=== PATIENT | male | born 1975 | race Caucasian/White ===

== ENCOUNTER 2019-11-24 12:50 | Inpatient (IN) | payer OTHER, MEDICARE ==
[~2019-11-24] VITALS: Ht 162.6 cm; Wt 84.4 kg
[2019-11-24] MEDS ORDERED: LevETIRAcetam 1,000 MG in DEXTROSE 5%-WATER 100 ML IV ONE (13:00)
[2019-11-24 13:16] LABS: BASOPHILS % (AUTO) 0.9 % (0.0-2.0); EOSINOPHILS % (AUTO) 5.7 % (1.0-6.0); HEMATOCRIT 45.9 % (41-53); HEMOGLOBIN 15.5 g/dL (13.5-17.5); LYMPHOCYTES % (AUTO) 9.8 % (22.0-44.0); MEAN CORPUSCULAR HEMOGLOBIN 29.1 pg (26.0-34.0); MEAN CORPUSCULAR HGB CONC 33.7 G/dL (31.0-37.0); MEAN CORPUSCULAR VOLUME 86 fL (80-100); MONOCYTES # (AUTO) 1.3 K/uL (0.1-1.0); MONOCYTES % (AUTO) 12.4 % (2.0-9.0); NEUTROPHILS # (AUTO) 7.3 K/uL (1.8-7.7); NEUTROPHILS % (AUTO) 71.2 % (40.0-70.0); PLATELET COUNT (AUTO) 246 K/uL (150-450); RED BLOOD CELL COUNT(AUTO) 5.32 MIL/uL (4.50-5.90)
[2019-11-24 13:33] LABS: CALCIUM, TOTAL 9.1 mg/dL (8.8-10.5); CREATININE 1.3 mg/dL (0.60-1.30); POTASSIUM 3.8 mmol/L (3.5-5.1)
[2019-11-24 13:39] LABS: BILIRUBIN,TOTAL 0.2 mg/dL (0.1-1.0); PROTHROMBIN TIME 10.1 SEC (9.4-11.6); TOTAL PROTEIN, SERUM 8.3 g/dL (6.4-8.2)
[2019-11-24 13:46] LABS: PHENYTOIN (DILANTIN) 0.5 mcg/mL (10.0-20.0)
[2019-11-24] MEDS ORDERED: AMLO10TA7 PO (13:46)
[2019-11-24] MEDS ORDERED: HYDR-1475 PO (13:46)
[2019-11-24] MEDS ORDERED: CLOP75TA3 PO (13:46)
[2019-11-24] MEDS ORDERED: PHENY100 PO (13:46)
[2019-11-24] MEDS ORDERED: ATOR40TA28 PO (13:46)
[2019-11-24] MEDS ORDERED: CARV3 PO (13:46)
[2019-11-24] MEDS ORDERED: METO-558 PO (13:46)
[2019-11-24] MEDS ORDERED: FLUT16H NASAL (13:46)
[2019-11-24] MEDS ORDERED: PRED20 PO (13:46)
[2019-11-24] MEDS ORDERED: FLUT100B IH (13:46)
[2019-11-24] MEDS ORDERED: LOSA-88 PO (13:46)
[2019-11-24] MEDS ORDERED: OXCA300T29 PO (13:46)
[2019-11-24] MEDS ORDERED: LEVE250T55 PO (13:46)
[2019-11-24] MEDS ORDERED: ROSU10TA22 PO (13:46)
[2019-11-24] MEDS ORDERED: BECL10.6 IH (13:46)
[2019-11-24] MEDS ORDERED: ASPI-728 PO (13:46)
[2019-11-24] MEDS ORDERED: HYD25 PO (13:46)
[2019-11-24 13:52] LABS: LACTIC ACID 5.3 mmol/L (0.4-2.0)
[2019-11-24] MEDS ORDERED: SODIUM CHLORIDE 0.9% 2,000 ML IV ONE (14:00)
[2019-11-24] MEDS ORDERED: IPRATROPIUM BROMIDE 0.5 MG/2.5 ML NEB SOLUTION NEB ONE (15:00)
[2019-11-24] MEDS ORDERED: ALBUTEROL SULFATE 5 MG/ML 20 ML NEB SOLN [BULK] NEB ONE ×2 (15:00)
[2019-11-24 16:48] LABS: APPEARANCE,URINE CLEAR (CLEAR); BILIRUBIN,URINE NEGATIVE (NEGATIVE); GLUCOSE, URINE (UA) NEGATIVE (NEGATIVE); KETONES,URINE NEGATIVE (NEGATIVE); LEUKOCYTE ESTERASE ,URINE NEGATIVE (NEGATIVE); NITRATE,URINE NEGATIVE (NEGATIVE); OCCULT BLOOD,URINE NEGATIVE (NEGATIVE); PROTEIN,URINE NEGATIVE (NEGATIVE); UROBILINOGEN,URINE 0.2 mg/dL (<=1.0)
[2019-11-24 16:55] LABS: AMPHET/METH SCREEN,URINE NEGATIVE (NEGATIVE); BARBITURATE SCREEN, URINE NEGATIVE (NEGATIVE); BENZODIAZEPINES SCREEN,URINE POSITIVE (NEGATIVE); CANNABINOID SCREEN,URINE NEGATIVE (NEGATIVE); COCAINE SCREEN,URINE NEGATIVE (NEGATIVE); METHADONE SCREEN, URINE NEGATIVE (NEGATIVE); OPIATE SCREEN,URINE NEGATIVE (NEGATIVE)
[2019-11-24 16:56] LABS: PHENCYCLIDINE SCREEN,URINE NEGATIVE (NEGATIVE)
[2019-11-24 17:15] LABS: BACTERIA,URINE Rare /HPF (None Seen); RBC,URINE 0-2 /HPF (0-2); SQUAMOUS EPITHELIAL CELL,UR Rare /LPF (None Seen); WBC,URINE 0-2 /HPF (0-5)
[2019-11-24] MEDS ORDERED: ACETAMINOPHEN 325 MG TABLET PO ONE (19:15)
[2019-11-24 20:55] VITALS: BP 140/91
[2019-11-24] MEDS ORDERED: MAGNESIUM HYDROXIDE SUSPENSION 30 ML UDCUP PO PRN (21:15)
[2019-11-24] MEDS ORDERED: IPRATROPIUM BROMIDE 0.5 MG/2.5 ML NEB SOLUTION NEB PRN (21:15)
[2019-11-24] MEDS ORDERED: ZOLPIDEM TARTRATE 5 MG TABLET PO PRN (21:15)
[2019-11-24] MEDS ORDERED: MORPHINE SULFATE 2 MG/ML SYRINGE IVP PRN (21:15)
[2019-11-24] MEDS ORDERED: PHENYTOIN SODIUM 750 MG in SODIUM CHLORIDE 0.9% 100 ML IV ONE (21:15)
[2019-11-24] MEDS ORDERED: ONDANSETRON HCL 4 MG/2 ML VIAL IVP PRN (21:15)
[2019-11-24] MEDS ORDERED: ALBUTEROL SULFATE 2.5 MG/0.5 ML NEB SOLUTION NEB PRN (21:15)
[2019-11-24] MEDS ORDERED: OxyCODONE HCL/ACETAMINOPHEN 5-325 MG TABLET PO PRN (21:15)
[2019-11-24] MEDS ORDERED: BISACODYL 10 MG RECTAL RECTAL SUPPOSITORY PR PRN (21:15)
[2019-11-24] MEDS ORDERED: ASPIRIN 81 MG CHEWABLE TABLET PO ONE (21:45)
[2019-11-24] MEDS ORDERED: SODIUM CHLORIDE 0.9% 250 ML IV ONE ×2 (21:45→22:43)
[2019-11-24] MEDS: ACETAMINOPHEN 325 MG TABLET PO PRN (21:47)
[2019-11-24] MEDS: DOCUSATE SODIUM 100 MG CAPSULE PO SCH (21:47)
[2019-11-24] MEDS: OXcarbazepine 300 MG TABLET PO SCH (22:19)
[2019-11-24] MEDS ORDERED: SODIUM CHLORIDE 0.9% 50 ML ONE (22:33)
[2019-11-24] MEDS: IPRATROPIUM BROMIDE 0.5 MG/2.5 ML NEB SOLUTION NEB SCH (23:00)
[2019-11-24] MEDS: ALBUTEROL SULFATE 2.5 MG/0.5 ML NEB SOLUTION NEB SCH (23:00)
[2019-11-24] MEDS: MethylPREDNISolone SOD SUCC 125 MG/2 ML VIAL IVP SCH (23:38)
[2019-11-25 00:02] VITALS: BP 135/81
[2019-11-25] MEDS: ALBUTEROL SULFATE 2.5 MG/0.5 ML NEB SOLUTION NEB SCH ×6 (02:38→23:52)
[2019-11-25] MEDS: IPRATROPIUM BROMIDE 0.5 MG/2.5 ML NEB SOLUTION NEB SCH ×6 (02:38→23:52)
[2019-11-25 04:30] VITALS: BP 134/95
[2019-11-25] MEDS: MethylPREDNISolone SOD SUCC 125 MG/2 ML VIAL IVP SCH ×4 (05:27→23:36)
[2019-11-25 07:40] VITALS: BP 157/92
[2019-11-25] MEDS: PANTOPRAZOLE SODIUM 40 MG DR TABLET PO SCH (08:10)
[2019-11-25] MEDS: LevETIRAcetam 250 MG TABLET PO SCH (08:10)
[2019-11-25] MEDS: HYDROCHLOROTHIAZIDE 25 MG TABLET PO SCH (08:10)
[2019-11-25] MEDS: CLOPIDOGREL BISULFATE 75 MG TABLET PO SCH (08:10)
[2019-11-25] MEDS: DOCUSATE SODIUM 100 MG CAPSULE PO SCH ×2 (08:10→20:30)
[2019-11-25] MEDS: ATORVASTATIN CALCIUM 40 MG TABLET PO SCH (08:10)
[2019-11-25] MEDS: HydrOXYzine HCL 25 MG TABLET PO SCH ×2 (08:10→20:30)
[2019-11-25] MEDS: ASPIRIN 81 MG CHEWABLE TABLET PO SCH (08:10)
[2019-11-25] MEDS: METOPROLOL SUCCINATE 50 MG ER TABLET PO SCH (08:13)
[2019-11-25] MEDS: LOSARTAN POTASSIUM 50 MG TABLET PO SCH (08:13)
[2019-11-25] MEDS: AmLODIPine BESYLATE 10 MG TABLET PO SCH (08:13)
[2019-11-25] MEDS: FLUTICASONE PROPIONATE 50 MCG/SPRAY 16 GM NASAL SPRAY NASAL SCH (08:13)
[2019-11-25] MEDS: OXcarbazepine 300 MG TABLET PO SCH ×2 (08:13→20:30)
[2019-11-25] MEDS: ROSUVASTATIN CALCIUM 10 MG TABLET PO SCH (08:13)
[2019-11-25] MEDS: CARVEDILOL 3.125 MG TABLET PO SCH (08:13)
[2019-11-25] MEDS: PHENYTOIN SODIUM 100 MG ER CAPSULE PO SCH (08:14)
[2019-11-25] MEDS ORDERED: PHENYTOIN SODIUM 100 MG ER CAPSULE PO SCH (09:00)
[2019-11-25] MEDS: ACETAMINOPHEN 325 MG TABLET PO PRN ×2 (11:22→18:58)
[2019-11-25 11:26] VITALS: BP 123/66
[2019-11-25 15:28] VITALS: BP 128/79
[2019-11-25 19:28] VITALS: BP 129/76
[2019-11-26 00:09] VITALS: BP 118/77
[2019-11-26] MEDS: IPRATROPIUM BROMIDE 0.5 MG/2.5 ML NEB SOLUTION NEB SCH ×3 (02:59→15:07)
[2019-11-26] MEDS: ALBUTEROL SULFATE 2.5 MG/0.5 ML NEB SOLUTION NEB SCH ×3 (03:00→15:07)
[2019-11-26 04:31] VITALS: BP 109/54
[2019-11-26] MEDS: MethylPREDNISolone SOD SUCC 125 MG/2 ML VIAL IVP SCH ×2 (06:05→13:15)
[2019-11-26 07:36] VITALS: BP 122/73
[2019-11-26] MEDS: ASPIRIN 81 MG CHEWABLE TABLET PO SCH (08:34)
[2019-11-26] MEDS: HydrOXYzine HCL 25 MG TABLET PO SCH (08:34)
[2019-11-26] MEDS: FLUTICASONE PROPIONATE 50 MCG/SPRAY 16 GM NASAL SPRAY NASAL SCH (08:34)
[2019-11-26] MEDS: DOCUSATE SODIUM 100 MG CAPSULE PO SCH (08:35)
[2019-11-26] MEDS: ATORVASTATIN CALCIUM 40 MG TABLET PO SCH (08:36)
[2019-11-26] MEDS: AmLODIPine BESYLATE 10 MG TABLET PO SCH (08:36)
[2019-11-26] MEDS: PANTOPRAZOLE SODIUM 40 MG DR TABLET PO SCH (08:36)
[2019-11-26] MEDS: CLOPIDOGREL BISULFATE 75 MG TABLET PO SCH (08:36)
[2019-11-26] MEDS: CARVEDILOL 3.125 MG TABLET PO SCH (08:36)
[2019-11-26] MEDS: HYDROCHLOROTHIAZIDE 25 MG TABLET PO SCH (08:36)
[2019-11-26] MEDS: ROSUVASTATIN CALCIUM 10 MG TABLET PO SCH (08:37)
[2019-11-26] MEDS: LevETIRAcetam 250 MG TABLET PO SCH (08:37)
[2019-11-26] MEDS: PHENYTOIN SODIUM 100 MG ER CAPSULE PO SCH (08:38)
[2019-11-26] MEDS: METOPROLOL SUCCINATE 50 MG ER TABLET PO SCH (09:00)
[2019-11-26] MEDS: LOSARTAN POTASSIUM 50 MG TABLET PO SCH (09:00)
[2019-11-26] MEDS: OXcarbazepine 300 MG TABLET PO SCH (09:14)
[2019-11-26 11:31] VITALS: BP 123/57
== END 2019-11-26 18:20 | disposition home or self-care (01) | DRG 101 ==
LOC: EMS 12:55 → 5S 17:12
PROVIDERS: ADMIT Hospitalist; ATTEND Hospitalist
DX: G40.409 Other generalized epilepsy and epileptic syndromes, not intractable, without status epilepticus (principal); J44.1 Chronic obstructive pulmonary disease with (acute) exacerbation; I67.5 Moyamoya disease; I10 Essential (primary) hypertension; E78.5 Hyperlipidemia, unspecified; I25.10 Atherosclerotic heart disease of native coronary artery without angina pectoris
CPT/HCPCS: 70496; 82948; 83605; 86850; 86900; 86901; 87040; 93005; 93306; 93880; 94060; 94640; 94644; J0712; J1165; J2930; J7050; J7060